=== PATIENT | female | born 1990 | race Caucasian/White ===

== ENCOUNTER → 2022-03-21 09:45 | Outpatient (CLI) | payer OTHER, SELFPAY ==
--- NOTE | ~2022-03-21 | US_ITS ---
EXAMINATION: US OB transvaginal DATE: 03/21/2022 10:35 INDICATION: First trimester dating TECHNIQUE: Real-time pelvic transabdominal and transvaginal ultrasound was performed. COMPARISON: None. FINDINGS: The uterus measures 6.3 x 4.5 x 4 cm. There is an intrauterine gestational sac. A yolk sac is identified. heart motion is identified measuring 100 beats per minute (bpm) by M-mode Doppl er. The crown rump length measures 2 mm , which correlates with an estimated gestational age of 5 weeks and 5 day(s) (+/-) 4 day(s). The right ovary measures 3.0 x 2.8 x 1.8 cm. The left ovary measures 2.6 x 1.7 x 2 cm. There is hay l vascular flow in the ovaries. There is no free fluid in the pelvis. IMPRESSION: 1. Live intrauterine with an estimated gestational age of 5 weeks and 5 day(s) (+/-) 4 day( s) and an estimated delivery date of 11/16/2022. Reviewed, dictated and finalized at location A. IMPRESSION: 1. Live intrauterine with an estimated gestational age of 5 weeks and 5 day(s) (+/-) 4 day(s) and an estimated delivery date of 11/16/2022.
== END ==
PROVIDERS: PCP Obstetrics & Gynecology Gynecologic Oncology; Visit Provider Obstetrics & Gynecology Gynecologic Oncology
DX: O09.299 Supervision of pregnancy with other poor reproductive or obstetric history, unspecified trimester (principal); Z3A.01 Less than 8 weeks gestation of pregnancy
CPT/HCPCS: 76817

== ENCOUNTER 2022-05-01 17:25 | Emergency (ER) | payer OTHER, SELFPAY ==
[2022-05-01 17:32] VITALS: BP 136/87; PULSE 108; RESP 18; TEMP 37.3; O2SAT 100
--- NOTE | 2022-05-01 17:41 | ED.URI ---
HPI - URI/Sore Throat General Chief Complaint: Upper Respiratory Infection Stated Complaint: Sore Throat,Body Aches,Fatigue Time Seen by Provider: 05/01/22 17:35 History of Present Illness HPI Narrative: Supriya Purdy is a 32-year-old female [facility] complaints of sore throat and fever for the last 2 days and the fever has been intermittent. She is 11 and half weeks and is due to start low-dose aspirin tomorrow per her [employer] because of a history of miscarriage. She had 2 miscarriages before she was successfully had her daughter and since then has had a molar as well as a missed (egg sac only). She is taking vitamins and Prometrium Prometrium-clarify that this is to stop on Friday at 12 weeks Related Data Home Medications Medication Instructions Recorded Confirmed vits [id number] fum 1 tablet PO DAILY 05/01/22 05/01/22 28 mg iron-folic acid 800 mcg tablet (Classic ) progesterone micronized 200 mg 200 mg PO HS 05/01/22 05/01/22 capsule Allergies Allergy/AdvReac Type Severity Reaction Status Date / Time Penicillins AdvReac Mild Hives Verified 05/01/22 17:52 Review of Systems Review of Systems: CONSTITUTIONAL: Has fever, chills, sweats. EYES: Denies visual changes, redness, discharge. ENT: Denies rhinorrhea, congestion, has sore throat, otalgia. CARDIOVASCULAR: Denies chest pain, palpitations, edema. RESPIRATORY: Denies dyspnea, wheezing, mild cough GASTROINTESTINAL: Denies abdominal pain, nausea, vomiting, diarrhea. GENITOURINARY: Denies dysuria, hematuria, abnormal discharge SKIN: Denies rash or itching. NEUROLOGIC: Denies numbness, or focal weakness. PSYCHIATRIC: Denies anxiety or depression. 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 There is no relevant family history pertinent to the presenting complaint. Exam Narrative: GENERAL: This is a well-nourished, well-developed patient, in mild distress. [place] feverish HEAD: normocephalic, atraumatic. EYES: . Sclera clear/white. Vision is grossly intact. EARS: External ears normal, auditory canals clear and without drainage, TMs normal without perforation. Hearing grossly intact. NOSE: External nose normal without nasal discharge, nares without redness, no rhinorrhea. THROAT: Mucous membranes moist, posterior pharynx erythema with no exudate NECK: Neck supple, tender CARDIOVASCULAR: Regular rate and rhythm without murmurs, gallops, or rubs. RESPIRATORY: Clear to auscultation. Breath sounds equal bilaterally. No wheezes, rales, or rhonchi. GASTROINTESTINAL: Not done SKIN: warm, intact with no suspicious lesions or rash, good texture and turgor. NEURO: awake, alert, and oriented to person, place and time. There were no obvious focal neurologic abnormalities. Steady gait EXTREMITIES: Normal range of motion. BACK: Nontender without deformity Course Course Emergency Course: Patient comes for sore throat and fever x2 days and is 1/2 weeks she has had multiple losses of pregnancies 2 miscarriages a molar and a missed as well as 1 other child born she is ago she is now with her 6 Strep test is negative reflex to culture started on Keflex 500 mg 1 twice daily #14 since she is allergic to penicillin Asked her to again check on the Prometrium with her doctor and she clarified that she is supposed to stop the 12 weeks this was noted on her discharge papers that registered nurse post partum having her start low-dose aspirin at 12 weeks also Level of Care: Express
== END 2022-05-01 18:07 | disposition home or self-care (01) ==
PROVIDERS: Emergency Provider Nurse Practitioner
DX: O99.891 Other specified diseases and conditions complicating pregnancy (principal); J02.8 Acute pharyngitis due to other specified organisms; Z3A.11 11 weeks gestation of pregnancy; O09.291 Supervision of pregnancy with other poor reproductive or obstetric history, first trimester
CPT/HCPCS: 87081; 87880; 99213; G0463

== ENCOUNTER → 2022-07-05 12:49 | Outpatient (CLI) | payer OTHER, SELFPAY ==
--- NOTE | ~2022-07-05 | US_ITS ---
EXAMINATION: US OB /maternal detail DATE: 07/05/2022 13:27 INDICATION: survey TECHNIQUE: Multiple obstetric sonographic images performed. FINDINGS: No prior studies for comparison. There is a single living fetus in transverse presentation. The placenta is posterior without placent a previa. Placental margin to the cervix is 5.2 cm. Cervical length is 3.7 cm. Amniotic fluid volume is subjectively normal cardiac activity and movement is noted with a heart rate of 137 beats per minute. The following anatomy was identified as normal: 4 chamber heart 3 vessel cord cord insertion kidneys urinary bladder stomach spine diaphragm ventricles cisterna magna cerebellum The following biometric data were obtained: BPD: 48mm corresponds to gestational age 20 weeks 3 days. Head circumference: 173 mm corresponds to gestational age 19 weeks 6 days. Abdominal circumference: 154 mm corresponds to gestational age 20 weeks 4 days. Femur length: 33 mm corresponds to gestational age 20 weeks 2 days. Head circumference to abdominal circumference ratio: 1.12 (normal range for expected gestational age is 1.07-1.25). Estimated weight: 353 grams +/- 53 grams using Hadlock method, 23.4%. IMPRESSION: 1: Single living intrauterine with an estimated gestational age of 20weeks 6days by initial ultrasound measurements, with an EDC of 11/16/2022 in transverse presentation. 2. Normal survey. Reviewed, dictated and finalized at location A. [employer] ASSUR[employer] NURSE IMPRESSION: 1: Single living intrauterine with an estimated gestational age of 20 weeks 6days by initial ultrasound measurements, with an EDC of 11/16/2022 in tra nsverse presentation. 2. Normal survey.
== END ==
PROVIDERS: PCP Obstetrics & Gynecology Gynecologic Oncology; Visit Provider Obstetrics & Gynecology Gynecologic Oncology
DX: Z36.9 Encounter for antenatal screening, unspecified (principal); Z3A.20 20 weeks gestation of pregnancy
CPT/HCPCS: 76805

== ENCOUNTER 2022-08-25 08:03 | Emergency (ER) | payer OTHER, SELFPAY ==
[2022-08-25 08:14] VITALS: BP 120/78; PULSE 91; RESP 18; TEMP 36.9; O2SAT 100
[2022-08-25 08:15] VITALS: BP 120/78; PULSE 91; RESP 18; TEMP 36.9; O2SAT 100
--- NOTE | 2022-08-25 08:29 | ED.EAR ---
HPI - Ear Problem General Chief complaint: Ear Stated complaint: Lt Ear Irritation Time Seen by Provider: 08/25/22 08:08 Source: patient Mode of arrival: ambulatory Limitations: no limitations History of Present Illness HPI Narrative: 32-year-old female presents to [facility] with complaints of left ear pain for the past 4 days. Patient reports that 4 days ago, she went to a different urgent care for sore throat and ear pain and had a negative flu, strep and COVID tests completed at that time. Patient reports that she did have COVID in July 2022. Patient is currently 28 weeks . Patient denies ear drainage, fever, body aches, chills, nausea vomiting or diarrhea. Patient denies vaginal discharge, vaginal bleeding or decreased movement. Patient has been using [id number] Flonase and taking [id number] Tylenol with little relief. MD Complaint: ear pain Location: left ear Duration: constant Relieving factors: nothing Exacerbating factors: nothing Treatment prior to arrival: oral analgesic Related Data Home Medications Medication Instructions Recorded Confirmed aspirin 81 mg tablet,delayed 81 mg PO DAILY 08/25/22 08/25/22 release Allergies Allergy/AdvReac Type Severity Reaction Status Date / Time Penicillins AdvReac Mild Hives Verified 08/25/22 08:14 Review of Systems Constitutional: Constitutional: Denies chills, Denies fatigue, Denies fever(s) and Denies weakness ENT: Denies vertigo, Denies dizziness and Denies epistaxis Comments: left ear pain Cardiovascular: Cardiovascular: Denies chest pain Respiratory: Respiratory: Denies cough, Denies dyspnea and Denies wheezing Gastrointestinal: Gastrointestinal: Denies abdominal pain, Denies diarrhea, Denies nausea and Denies vomiting Integumentary/Breasts: Skin/Breast: Denies rash Neurologic: Denies vertigo and Denies dizziness [facility] Past Medical History Medical History 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 There is no relevant family history pertinent to the presenting complaint. Exam Const: General: healthy appearing Nutritional Appearance: well nourished Orientation/consciousness: patient oriented x3 Limitations: no limitations HENMT: Head: normal to inspection Ears: EAC's normal and TM abnormal dull on the left, erythematous on the left and with fluid behind the TM on the right Mouth: Yes Normal oral and palatal mucosa present, Yes lip normal and Yes moist mucous membranes Throat: posterior oropharynx normal and uvula midline Eyes: Conjunctivae: conjunctivae normal Neck: Neck: normal visual inspection Resp: Effort & Inspection: normal respiratory effort and not labored Auscultation: clear to auscultation bilaterally, no crackles, no rales, no rhonchi and no wheezes Cardio: Rate: regular rate Rhythm: regular rhythm Heart sounds: no murmurs Skin: General skin exam: normal color Rashes: no rashes Wounds: no wounds Neuro: General: patient oriented x3 Speech: normal speech Gait exam (Neuro): Normal gait present Psych: Affect: normal affect Attitude: cooperative Course Course Level of Care: Express Care Visit Vital Signs Vital signs: Vital Signs Temperature 36.9 C 08/25/22 08:14 Pulse Rate 91 08/25/22 08:14 Respiratory Rate 18 08/25/22 08:14 Blood Pressure 120/78 08/25/22 08:14 Pulse Oximetry 100 08/25/22 08:14 Oxygen Delivery Room Air 08/25/22 08:14 Temperature 36.9 C 08/25/22 08:15 Pulse Rate 91 08/25/22 08:15 Respiratory Rate 18 08/25/22 08:15 Blood Pressure 120/78 08/25/22 08:15 Pulse Oximetry 100 08/25/22
== END 2022-08-25 08:36 | disposition home or self-care (01) ==
PROVIDERS: Emergency Provider Nurse Practitioner Family
DX: O99.891 Other specified diseases and conditions complicating pregnancy (principal); Z3A.28 28 weeks gestation of pregnancy; H66.92 Otitis media, unspecified, left ear; Z86.16 Personal history of COVID-19; Z79.82 Long term (current) use of aspirin
CPT/HCPCS: 99213; G0463

== ENCOUNTER → 2023-05-20 09:02 | Outpatient (CLI) | payer OTHER, SELFPAY ==
--- NOTE | ~2023-05-20 | MR_ITS ---
MRA HEAD History: Headache, blurred vision Technique: 3D time of flight MRA of the head is performed. Findings: The right and left distal vertebral arteries and the basilar and posterior cerebral arterie s are normal. Right and left distal internal carotid arteries and anterior and middle cerebral arteri es are normal. There is no aneurysm, stenosis, or occlusion. Impression: No occlusion, stenosis, or aneurysm. Reviewed, dictated and finalized at location M. Impression: No occlusion, stenosis, or aneurysm.
--- NOTE | ~2023-05-20 | MR_ITS ---
MRI of the brain Clinical History: Headache Technique: Axial and sagittal T1-weighted images were acquired. These were followed by axial T2-weigh ilan, diffusion weighted, gradient, and FLAIR images. Following intravenous administration of 12 cc Mu ltiHance gadolinium, T1-weighted fat-sat imaging was performed in the axial and coronal planes. Findings: There is no abnormal signal in the brain parenchyma. No acute infarct, intracranial hemorrh age, or mass lesion. Ventricles and subarachnoid spaces are unremarkable. Orbits are unremarkable. Paranasal sinuses and m astoid air cells are clear. Major intracranial flow voids appear intact. Sagittal midline structures are intact. No abnormal postcontrast enhancement identified. IMPRESSION: Unremarkable exam. Reviewed, dictated and finalized at location M. IMPRESSION: Unremarkable exam.
== END ==
PROVIDERS: PCP Physician Assistant; Visit Provider Physician Assistant
DX: R51.9 Headache, unspecified (principal); R20.0 Anesthesia of skin; H53.8 Other visual disturbances
CPT/HCPCS: 70544; 70553; A9577